=== PATIENT | male | born 1945 | race African-American/Black ===

== ENCOUNTER 2017-04-01 10:45 | Outpatient (RCR) | payer OTHER | END 2017-04-22 | disposition home or self-care (01) | LOC: PTY 10:45 | DX: M25.511 Pain in right shoulder (principal); M25.512 Pain in left shoulder ==

== ENCOUNTER 2017-04-28 10:30 | Outpatient (RCR) | payer OTHER | END 2017-05-23 | disposition home or self-care (01) | LOC: PTY 10:30 | DX: M25.511 Pain in right shoulder (principal); M25.512 Pain in left shoulder ==